=== PATIENT | female | born 1960 | race Caucasian/White ===

== ENCOUNTER 2020-04-27 14:57 | Inpatient (IN) | payer OTHER ==
[~2020-04-27] VITALS: Ht 162.6 cm; Wt 46.9 kg
[2020-04-27] MEDS ORDERED: LASIX20 MG PO (17:38)
[2020-04-27] MEDS ORDERED: VITAMIN D250 MCG PO (17:38)
[2020-04-27] MEDS ORDERED: POTASSIUM CHLOR8 MEQ PO (17:39)
[2020-04-27] MEDS ORDERED: SEROQUEL XR200 MG PO (17:39)
[2020-04-27] MEDS ORDERED: OMEPRAZOLE40 MG PO (17:40)
[2020-04-27] MEDS ORDERED: DALIRESP500 MCG PO (17:40)
[2020-04-27] MEDS ORDERED: ARNUITY ELLIPT50 MCG INH (17:41)
[2020-04-27] MEDS ORDERED: DOCUSATE CALCI240 MG PO (17:41)
[2020-04-27] MEDS ORDERED: CLARITIN10 M2 PO (17:41)
[2020-04-27] MEDS ORDERED: ZOFRAN4 MG PO (17:42)
[2020-04-27] MEDS ORDERED: PROAIR DIGIHAL90 MCG INH (17:43)
[2020-04-27] MEDS ORDERED: IBUPROFEN600 MG PO (17:44)
[2020-04-27] MEDS ORDERED: WIXELA 500-501 EACH INH (17:44)
[2020-04-27] MEDS ORDERED: HYDROCODON-ACE1 EAC6 PO (17:45)
[2020-04-27 18:13] LABS: HEMOGLOBIN 9.3 gm/dl (12.3-15.3); RED BLOOD COUNT 3.5 M/UL (4.00-5.10)
[2020-04-27 18:31] LABS: BUN/CREATININE RATIO 46 (0-10)
--- NOTE | 2020-04-28 05:01 | NUR ---
REPORT GIVEN TO QUINTON. PT TO BE ROOMED IN 1792
[2020-04-28 05:14] LABS: RED BLOOD COUNT 3.42 M/UL (4.00-5.10); WHITE BLOOD COUNT 14.3 K/UL (4.5-11.0)
[2020-04-28 05:46] LABS: BUN/CREATININE RATIO 41 (0-10)
[2020-04-28] MEDS ORDERED: MEDROL4 MG PO (13:36)
[2020-04-28] MEDS ORDERED: AUGMENTIN 875-1 EACH PO (13:36)
== END 2020-04-28 15:43 | disposition home or self-care (01) | DRG 193 ==
LOC: CCU 16:30 → MED SURG 4 04-28 05:56
PROVIDERS: ADMIT Family Medicine
DX: J18.9 Pneumonia, unspecified organism (principal); J96.21 Acute and chronic respiratory failure with hypoxia; J96.22 Acute and chronic respiratory failure with hypercapnia; J44.0 Chronic obstructive pulmonary disease with (acute) lower respiratory infection; J44.1 Chronic obstructive pulmonary disease with (acute) exacerbation; R65.10 Systemic inflammatory response syndrome (SIRS) of non-infectious origin without acute organ dysfunction; Y95 Nosocomial condition; D72.829 Elevated white blood cell count, unspecified; K21.9 Gastro-esophageal reflux disease without esophagitis; F17.210 Nicotine dependence, cigarettes, uncomplicated; D64.9 Anemia, unspecified; Z99.81 Dependence on supplemental oxygen; L89.151 Pressure ulcer of sacral region, stage 1; Z20.822 Contact with and (suspected) exposure to COVID-19
CPT/HCPCS: 36415; 36600; 71045; 80048; 80053; 82803; 83735; 83880; 84443; 85025; 85610; 94640; 94660; 94760; J2543; J2930; J3370; J7050; J7070

== ENCOUNTER → 2020-07-12 | Outpatient (CLI) | payer OTHER ==
[~2020-07-12] MED LIST: ARNUITY ELLIPT50 MCG INH; AUGMENTIN 875-1 EACH PO; CLARITIN10 M2 PO; DALIRESP500 MCG PO; DOCUSATE CALCI240 MG PO; HYDROCODON-ACE1 EAC6 PO; IBUPROFEN600 MG PO; LASIX20 MG PO; MEDROL4 MG PO; OMEPRAZOLE40 MG PO; POTASSIUM CHLOR8 MEQ PO; PROAIR DIGIHAL90 MCG INH; SEROQUEL XR200 MG PO; VITAMIN D250 MCG PO; WIXELA 500-501 EACH INH; ZOFRAN4 MG PO
== END ==
LOC: HEART 5 10:05
DX: J96.90 Respiratory failure, unspecified, unspecified whether with hypoxia or hypercapnia (principal); R94.2 Abnormal results of pulmonary function studies; F17.210 Nicotine dependence, cigarettes, uncomplicated
CPT/HCPCS: 94060

== ENCOUNTER 2021-01-22 14:20 | Inpatient (IN) | payer OTHER ==
[~2021-01-22] VITALS: Ht 157.5 cm; Wt 44.5 kg
[2021-01-22] MEDS ORDERED: ADVAIR 500-501 EACH INH (17:48)
[2021-01-22] MEDS ORDERED: CYANOCOBAL1000 MCG/1 INJ (17:48)
[2021-01-22] MEDS ORDERED: MIRTAZAPINE15 MG PO (17:49)
[2021-01-22] MEDS ORDERED: CYPROHEPTADINE H4 MG PO (17:49)
[2021-01-22] MEDS ORDERED: ONE DAILY MULT1 EAC1 PO (17:50)
[2021-01-22] MEDS ORDERED: ALBUTEROL2.5 MG/3 M INH (17:51)
[2021-01-22] MEDS ORDERED: PREDNISONE10 MG PO (17:51)
[2021-01-22 19:03] LABS: RED BLOOD COUNT 3.78 M/UL (4.00-5.10); WHITE BLOOD COUNT 19.4 K/UL (4.5-11.0)
[2021-01-22 19:35] LABS: BUN/CREATININE RATIO 38 (0-10)
[2021-01-23 03:19] LABS: HEMOGLOBIN 8.4 gm/dl (12.3-15.3); RED BLOOD COUNT 3.46 M/UL (4.00-5.10)
[2021-01-23 03:24] LABS: WHITE BLOOD COUNT 11.4 K/UL (4.5-11.0)
[2021-01-23 03:37] LABS: BUN/CREATININE RATIO 41 (0-10)
[2021-01-24 03:28] LABS: HEMOGLOBIN 7.9 gm/dl (12.3-15.3); RED BLOOD COUNT 3.34 M/UL (4.00-5.10); WHITE BLOOD COUNT 12.5 K/UL (4.5-11.0)
[2021-01-24 03:41] LABS: BUN/CREATININE RATIO 50 (0-10)
[2021-01-24] MEDS ORDERED: ACETAZOLAMIDE250 MG PO (10:26)
[2021-01-24] MEDS ORDERED: MEDROL DOSEPAK 24 MG PO (10:26)
[2021-01-24] MEDS ORDERED: LASIX20 MG PO (10:26)
[2021-01-24] MEDS ORDERED: AUGMENTIN 875-1 EACH PO (10:26)
[2021-01-24] MEDS ORDERED: AZITHROMYCIN250 MG PO (10:26)
== END 2021-01-24 12:33 | disposition home or self-care (01) | DRG 871 ==
LOC: PROG CARE 17:12
PROVIDERS: ADMIT Internal Medicine
PROC: 5A09457 Assistance with Respiratory Ventilation, 24-96 Consecutive Hours, Continuous Positive Airway Pressure (ICD-10-PCS; 2021-01-22)
PROC: B24BZZ4 Ultrasonography of Heart with Aorta, Transesophageal (ICD-10-PCS; principal; 2021-01-23)
DX: A41.9 Sepsis, unspecified organism (principal); J96.21 Acute and chronic respiratory failure with hypoxia; J18.9 Pneumonia, unspecified organism; G93.41 Metabolic encephalopathy; J96.22 Acute and chronic respiratory failure with hypercapnia; E87.3 Alkalosis; I50.32 Chronic diastolic (congestive) heart failure; E87.2 Acidosis; R64 Cachexia; Z68.1 Body mass index [BMI] 19.9 or less, adult; E46 Unspecified protein-calorie malnutrition; Z20.822 Contact with and (suspected) exposure to COVID-19; L89.150 Pressure ulcer of sacral region, unstageable; I35.0 Nonrheumatic aortic (valve) stenosis; I07.1 Rheumatic tricuspid insufficiency; R65.20 Severe sepsis without septic shock; F41.9 Anxiety disorder, unspecified; F32.9 Major depressive disorder, single episode, unspecified; J43.9 Emphysema, unspecified; I11.0 Hypertensive heart disease with heart failure; F17.210 Nicotine dependence, cigarettes, uncomplicated; D64.9 Anemia, unspecified; Z98.84 Bariatric surgery status; Z86.16 Personal history of COVID-19
CPT/HCPCS: ECHO; 36415; 36600; 71045; 80048; 80053; 82550; 82553; 82803; 83605; 83880; 84484; 85027; 87040; 93306; 94640; 94660; 94760; J1335; J2920; J2930

== ENCOUNTER 2021-02-07 15:31 | Observation (INO) | payer OTHER ==
[~2021-02-07] VITALS: Ht 157.5 cm; Wt 49.0 kg
[~2021-02-07 15:31] MED LIST changes: +ACETAZOLAMIDE250 MG PO; +ADVAIR 500-501 EACH INH; +ALBUTEROL2.5 MG/3 M INH; +AZITHROMYCIN250 MG PO; +CYANOCOBAL1000 MCG/1 INJ; +CYPROHEPTADINE H4 MG PO; +MEDROL DOSEPAK 24 MG PO; +MIRTAZAPINE15 MG PO; +ONE DAILY MULT1 EAC1 PO; +PREDNISONE10 MG PO
[2021-02-07 16:41] LABS: HEMOGLOBIN 9.5 gm/dl (12.3-15.3); RED BLOOD COUNT 3.93 M/UL (4.00-5.10); WHITE BLOOD COUNT 9.4 K/UL (4.5-11.0)
[2021-02-07 17:01] LABS: BUN/CREATININE RATIO 36 (0-10)
[2021-02-08 01:56] LABS: HEMOGLOBIN 8.8 gm/dl (12.3-15.3); RED BLOOD COUNT 3.68 M/UL (4.00-5.10); WHITE BLOOD COUNT 9.7 K/UL (4.5-11.0)
[2021-02-08 02:27] LABS: BUN/CREATININE RATIO 31 (0-10)
== END 2021-02-08 14:05 | disposition home or self-care (01) ==
LOC: ER1 15:31 → CDU 20:31 → MED SURG 4 21:55
PROVIDERS: Physician Assistant; ADMIT Internal Medicine
DX: J96.22 Acute and chronic respiratory failure with hypercapnia (principal); J96.11 Chronic respiratory failure with hypoxia; G93.41 Metabolic encephalopathy; J43.9 Emphysema, unspecified; G89.29 Other chronic pain; D64.9 Anemia, unspecified; D69.6 Thrombocytopenia, unspecified; K21.9 Gastro-esophageal reflux disease without esophagitis; I10 Essential (primary) hypertension; Z91.19 Patient's noncompliance with other medical treatment and regimen; Z88.9 Allergy status to unspecified drugs, medicaments and biological substances; Z98.0 Intestinal bypass and anastomosis status; Z86.16 Personal history of COVID-19; Z87.01 Personal history of pneumonia (recurrent); Z20.822 Contact with and (suspected) exposure to COVID-19
CPT/HCPCS: 96365; 96375; 36415; 36600; 71045; 80053; 81001; 82550; 82553; 82803; 83605; 83874; 84484; 85025; 85027; 87040; 93005; 94640; 94660; 94760; 96376; 99285; A6212; G0378; J0696; J1120; J2920; U0002